=== PATIENT | female | born 1985 | race Caucasian/White ===

== ENCOUNTER 2016-11-20 17:56 | Inpatient (IN) | payer OTHER ==
[~2016-11-20 17:56] MED LIST: PENICILLIN G POTASSIUM INJ 5,000,000 UNITS in SODIUM CHLORIDE 0.9% INJ 100 ML IV ONE
[2016-11-20] MEDS ORDERED: LACTATED RINGER'S 1000 ML INJ 1,000 ML IV SCH (18:09)
[2016-11-20] MEDS ORDERED: LACTATED RINGER'S 1000 ML INJ 1,000 ML IV PRN (18:09)
[2016-11-20] MEDS ORDERED: SODIUM CHLORID 0.9% 500 ML INJ 500 ML IV PRN (18:15)
[2016-11-20] MEDS ORDERED: CITRIC ACID-SODIUM CITRATE LIQ 30 ML UDC PO SCH (18:15)
[2016-11-20] MEDS ORDERED: MINERAL OIL 10 ML VIAL TOPICAL PRN (18:15)
[2016-11-20] MEDS ORDERED: LIDOCAINE HCL 1% 50 ML VIAL I-DERMAL PRN (18:15)
[2016-11-20] MEDS ORDERED: LIDOCAINE HCL 1% 50 ML VIAL INFIL PRN (18:15)
[2016-11-20] MEDS ORDERED: OXYTOCIN 30 UNITS-500ML PREMIX 500 ML IV ONE (18:15)
[2016-11-20] MEDS ORDERED: SODIUM CHLOR 0.9% 1000 ML INJ 1,000 ML IV PRN (18:29)
[2016-11-20] MEDS ORDERED: BETAMETHASONE SOD PHOS/ACETATE SUSP 30 MG/5 ML VIAL IM ONE (18:45)
[2016-11-20] MEDS ORDERED: PENICILLIN G POTASSIUM INJ 5,000,000 UNITS in SODIUM CHLORIDE 0.9% INJ 100 ML IV ONE (19:00)
[2016-11-20 19:12] LABS: AUTOMATED NEUTROPHIL # 11.3 TH/MM3 (1.8-7.7); BASOPHIL % 0.3 % (0.0-2.0); EOSINOPHIL # 0.1 TH/MM3 (0-0.4); EOSINOPHIL % 0.6 % (0.0-4.0); HEMATOCRIT 34.8 % (35.0-46.0); HEMO FLAGS DIFF FINAL; LYMPH % 9.7 % (9.0-44.0); LYMPHOCYTE # 1.3 TH/MM3 (1.0-4.8); MEAN CELL VOLUME 84.3 FL (80.0-100.0); MEAN CORPUSCULAR HEMOGLOBIN 27.3 PG (27.0-34.0); MEAN CORPUSCULAR HGB CONC 32.4 % (32.0-36.0); MONO % 7.7 % (0.0-8.0); NEUT % 81.7 % (16.0-70.0); PLATELET COUNT 323 TH/MM3 (150-450); RED BLOOD COUNT 4.13 MIL/MM3 (4.00-5.30); RED CELL DISTRIBUTION WIDTH 16.1 % (11.6-17.2); WHITE BLOOD COUNT 13.8 TH/MM3 (4.0-11.0)
--- NOTE | 2016-11-20 19:14 | HHI.HP ---
HPI Chief Complaint Contractions and vaginal bleeding Date Seen: November 20, 2016 Travel History International Travel<30 Days: No Contact w/Intl Traveler<30Days: No Known Affected Area: No History of Present Illness HPI The patient is 31-year-old white female at approximately 33 weeks with very little care who presents brought in from the longterm for severe abdominal pain and vaginal bleeding that began there. Patient has [place] living [address] she is an IV drug user she's been on Subutex and other medications. She was picked up by the police and taken to the longterm today. It was at that time she began having pain and she thought her water broke because liquid came out but it was blood not water the heart rate tracing is reactive at this time and she is ann marie every 1-3 minutes. He is having a lot of pain with her contractions and it's almost continuous very much like abruption pattern. Para: 1 : 4 History Obstetric History Obstetric History One vaginal delivery and 2 early losses Social History Narrative Social History Patient is known history of IV and oral drug use is on Subutex now Alcohol Use: Yes Tobacco Use: Yes Substance Abuse: Yes Allergies-Medications (Allergen,Severity, Reaction): Coded Allergies: No Known Allergies (Unverified , 11/20/16) Review of Systems General / Constitutional: No: Fever, Weight Gain, Chills, Other Eyes: No: Diploplia, Blurred Vision, Visual changes, Pain, Photophobia HENT: No: Headaches, Vertigo, Lightheadedness Cardiovascular: No: Irregular Rhythm, Chest Pain or Discomfort, Palpitations, Tachycardia, Syncope, Varicosities, Edema, Cyanosis Respiratory: No: Cough, Short of Breath, Other Gastrointestinal: No: Nausea, Vomiting, Diarrhea Genitourinary: No: Decreased Urinary Output, Oliguria Musculoskeletal: No: Limited ROM, Weakness, Cramping, Edema, Pain Skin: No Rash, No Itching, No Dryness, No Lumps, No Change in Pigmentation, No Change in Nails, No Alopecia, No Lesions Neurologic: No: Weakness, Dizziness, Syncope, Focal Abnormalities, Coordination Problem, Headache, Slurred Speech, Seizures Psychiatric: No: Depression, Suicidal Ideations, Homicidal Ideation Endocrine: No: Heat Intolerance, Cold Intolerance, Polydipsia, Polyuria, Other Physical Exam Narrative GENERAL: Well-nourished, well-developed patient. An acute distress due to contraction pain SKIN: Warm and dry. HEAD: Normocephalic and atraumatic. EYES: No scleral icterus. No injection or drainage. ENT: No nasal drainage noted. Mucous membranes pink. Airway patent. NECK: Supple, trachea midline. No JVD. CARDIOVASCULAR: Regular rate and rhythm without murmurs, gallops, or rubs. RESPIRATORY: Breath sounds equal bilaterally. No accessory muscle use. BREASTS: Bilateral exam showed no masses , no retractions, no nipple discharge. ABDOMEN/GI: Abdomen hard, -tender, bowel sounds present, no rebound, no guarding Gravid to [33-] weeks size Fundal Height: [33-] GENITOURINARY: External Genitalia: intact and normal in appearance -] Moderate amount of red blood noted per vagina no active bleeding Cervix: [-] Dilatation: [4-] Effacement: [100-] Station: [-2] Presentation: [-vtx] Membranes: [ ruptured] Uterine Contractions: [1-2 minutes-] FHT's: Category: [1-] Baseline: [133-] Reactive: [Y-] Variability: [-mod] Decels: [0-] EXTREMITIES: No cyanosis or edema. BACK: Nontender without obvious deformity. No CVA tenderness. NEUROLOGICAL: Awake and alert. Motor and sensory grossly within normal limits. Five out of 5 muscle strength in all muscle groups. Normal speech. Data Data Orders Admit To Inpatient (11/20/16 ) Vital Signs (Adult) .Per protocol (11/20/16 18:09) Heart (11/20/16 18:09) Amnioinfusion (11/20/16 18:09) Urinary Catheter Management .ONCE (11/20/16 18:09) Diet Npo (11/20/16 Dinner) Lactated Ringer's 1000 Ml Inj (Lr 1000 M (11/20/16 18:09) Lactated Ringer's 1000 Ml Inj (Lr 1000 M (11/20/16 18:09) Sodium Chlorid 0.9% 500 Ml Inj (Ns 500 M (11/20/16 18:15) Sodium Chlor 0.9% 1000 Ml Inj (Ns 1000 M (11/20/16 18:29) Lidocaine 1% Inj (50 Ml) (Xylocaine 1% I (11/20/16 18:15) Citric Acid-Sodium Citrate Liq (Bicitra (11/20/16 18:15) Fentanyl Inj (Fentanyl Inj) (11/20/16 18:15) Fentanyl Inj (Fentanyl Inj) (11/20/16 18:15) Penicillin G Potassium Inj (Pfizerpen-G (11/20/16 17:00) Penicillin G Potassium Inj (Pfizerpen-G (11/20/16 23:00) Complete Blood Count With Diff (11/20/16 18:09) Hold Clot (11/20/16 18:09) Abo/Rh Blood Type (11/20/16 18:09) Urinalysis - C+S If Indicated (11/20/16 18:09) Type And Screen (11/20/16 18:09) Resp Oxygen Non Rebreathe Mask (11/20/16 ) ^ Epidural / Intrathecal Infus (11/20/16 18:09) Oxytocin 30 Units-500ml Premix (Pitocin (11/20/16 18:15) Lidocaine 1% Inj (50 Ml) (Xylocaine 1% I (11/20/16 18:15) Light Mineral Oil (Muri-Lube Oil) (11/20/16 18:15) Rubella Immune Status (11/20/16 18:11) Hepatitis Profile (11/20/16 18:11) Rapid Plasma Regin (Rpr) W Ttr (11/20/16 18:11) No Care Spec Serology (11/20/16 18:11) Comprehensive Metabolic Panel (11/20/16 18:12) Coag Profile (11/20/16 18:12) Ob Poc Ultrasound (11/20/16 ) Ob (2e) Additional Admit Info (11/20/16 18:18) Penicillin G Potassium Inj (Pfizerpen-G (11/20/16 19:00) Betamethasone Inj (Celestone Soluspan In (11/20/16 18:45) Ob/Psych Drug Screen, Urine (11/20/16 18:51) Labs Bedside ultrasound was done which shows a vertex fetus with his growth parameters. At 32 weeks 3 days with weight of 2531 g, normal amniotic fluid anterior placenta noted, no previa seen basic anatomy scan within normal limits Assessment/Plan Assessment and Plan 31-year-old white female at 33 weeks approximately with very little care presents in active labor with vaginal bleeding noted on exam consistent with an abruption and labor, her cervix is 400% -2 vertex presentation with a moderate amount of bleeding not excessive. Patient has a history of drug use is Brought in and here by the longterm picked her up yesterday. Plan to admit the patient for delivery and labor management , draw Abruption labs, lab, and perform ultrasound for estimated weight , will anticipate vaginal delivery very quickly. Oscar Howard II, MD November 20, 2016 19:14
[2016-11-20] MEDS ORDERED: LORazepam 2 MG/ML VIAL IM PRN (19:15)
[2016-11-20 19:21] LABS: BLOOD GAS BASE EXCESS -0.2 mmol/L (-2-2); BLOOD GAS O2 HGB SATURATION 36 % (90-100); CORD BLOOD GAS HCO3 25 mmol/L (21-29); CORD BLOOD GAS PCO2 46 mmHG (34-78); CORD BLOOD GAS PH 7.35 (7.14-7.42); CORD BLOOD GAS PO2 18 mmHG (3.0-40.0)
[2016-11-20 19:22] LABS: DRAW SITE CORD BLOOD; STAT YES
--- NOTE | 2016-11-20 19:26 | PD.OB.DELI ---
Anesthesia: None Episiotomy: None Vaginal Delivery: Normal, Precipitous Presentation: Occiput anterior Nuchal Cord: x1 Delayed cord clamping (45 sec): No : Male One Minute : 9 Five Minute : 9 Weight: 1950 gm Placenta: Spontaneous delivery, Intact, Other Laceration: No lacerations Additional Information placenta showed clots consistent with abruption , sent to Oscar Valadez II, MD November 20, 2016 19:25
[2016-11-20] MEDS ORDERED: SODIUM CHLORIDE 0.9% FLUSH 10 ML FLUSH IV FLUSH PRN (19:30)
[2016-11-20] MEDS ORDERED: ACETAMINOPHEN 325 MG TAB PO PRN (19:30)
[2016-11-20] MEDS ORDERED: ONDANSETRON ODT 4 MG TAB PO PRN (19:30)
[2016-11-20] MEDS ORDERED: ZOLPIDEM TARTRATE 5 MG TAB PO PRN (19:30)
[2016-11-20] MEDS ORDERED: BENZOCAINE 20% TOPICAL SPRAY 60 ML CAN TOPICAL PRN (19:30)
[2016-11-20] MEDS ORDERED: WITCH HAZEL 50%/GLYCERIN 12.5% 40 PAD JAR TOPICAL PRN (19:30)
[2016-11-20] MEDS ORDERED: ALUMINUM/MAGNESIUM/SIMETH 30 ML CUP PO PRN (19:30)
[2016-11-20] MEDS ORDERED: DOCUSATE SODIUM 50 MG/SENNA 8.6 MG TAB PO PRN (19:30)
[2016-11-20 19:45] LABS: ALKALINE PHOSPHATASE 219 U/L (45-117); ALT (GPT) 39 U/L (10-53); ANION GAP 9 MEQ/L (5-15); AST (GOT) 34 U/L (15-37); BICARBONATE 23.2 MEQ/L (21.0-32.0); BLOOD UREA NITROGEN 5 MG/DL (7-18); CHLORIDE 103 MEQ/L (98-107); GLOMERULAR FILTRATION RATE 114 ML/MIN (>89); SODIUM (NA) 135 MEQ/L (136-145); TOTAL BILIRUBIN ADULT 0.4 MG/DL (0.2-1.0)
[2016-11-20 19:51] LABS: POTASSIUM 4.2 MEQ/L (3.5-5.1)
[2016-11-20] MEDS: IBUPROFEN 600 MG TAB PO PRN (19:53)
[2016-11-20 20:36] LABS: BACTERIA, URINE RARE /hpf; BLOOD, URINE SMALL (NEG); GLUCOSE,URINE NEG (NEG); KETONE, URINE NEG (NEG); MUCUS URINE FEW /lpf (OCC); NITRITE,URINE NEG (NEG); SQUAMOUS EPITHELIAL CELL URINE <1 /hpf (0-5); URINE COLOR YELLOW (YELLW/STRAW)
[2016-11-20 20:37] LABS: AMPHETAMINE, URINE NEG (NEG); BARBITURATES, URINE NEG (NEG)
[2016-11-20 20:55] LABS: COCAINE, URINE POS (NEG); COMMENT (UR) CULT NOT INDICATED; CULTURE IF INDICATED CULT NOT INDICATED
[2016-11-20 21:00] VITALS: RESP 18
[2016-11-20 21:00] LABS: APTT (PATIENT) 29.1 SEC (24.3-30.1); INTERNATIONAL NORMALIZED RATIO 0.9 RATIO; PROTHROMBIN TIME - PATIENT 9.6 SEC (9.8-11.6)
[2016-11-20] MEDS ORDERED: SODIUM CHLORIDE 0.9% FLUSH 10 ML FLUSH IV FLUSH SCH (21:00)
[2016-11-20] MEDS: PENICILLIN G POTASSIUM INJ 2,500,000 UNITS in SODIUM CHLORIDE 0.9% INJ 100 ML IV SCH (23:00)
[2016-11-21] MEDS: PENICILLIN G POTASSIUM INJ 2,500,000 UNITS in SODIUM CHLORIDE 0.9% INJ 100 ML IV SCH (03:00)
[2016-11-21] MEDS: IBUPROFEN 600 MG TAB PO PRN ×2 (04:05→09:57)
--- NOTE | 2016-11-21 09:20 | HHI.OB ---
Subjective Post Day: 1 Remarks Ms. Tang is a 31 yo who is PPD 1 from [facility] 11/20 at 1856. Patient was afebrile with stable vital signs overnight. Patient awoken from sleep from interview; she reports ambulating this morning and urinating without complications briefly. Patient reports mild abdominal pain at this time. She is unaware of quantity of vaginal bleeding. Objective Vitals/I&O Vital Signs Date Time Temp Pulse Resp B/P Pulse Ox O2 Delivery O2 Flow Rate FiO2 11/20/16 21:00 18 11/20/16 20:30 18 11/20/16 20:30 18 Objective Remarks GENERAL: Well-nourished, well-developed patient. CARDIOVASCULAR: Regular rate and rhythm without murmurs, gallops, or rubs. RESPIRATORY: Breath sounds equal bilaterally. No accessory muscle use. ABDOMEN/GI: Abdomen soft, non-tender. Fundus: Firm, non-tender at umbilicus. GENITOURINARY: Light to moderate bleeding. EXTREMITIES: No cyanosis or edema, non-tender, without signs of DVT. Medications and IVs Current Medications Medications (Trade) Dose Ordered Sig/Tomas Route Start Time Stop Time Status Last Admin Lactated Ringer's 1,000 ml @ 125 mls/hr Q8H IV 11/20/16 18:09 Lactated Ringer's 1,000 ml @ 3,000 mls/hr Q20M PRN IV 11/20/16 18:09 (NS 1000 ml Inj) 1,000 ml @ 100 mls/hr Q10H PRN IV 11/20/16 18:29 (fentaNYL INJ) 50 mcg Q1H PRN IV PUSH 11/20/16 18:15 11/20/16 19:19 Fentanyl Citrate 100 mcg 100 mcg Q1H PRN IV PUSH 11/20/16 18:15 11/20/16 19:20 (Pfizerpen-G Inj/ NS Inj) 100 ml @ 200 mls/hr Q4H IV 11/20/16 23:00 (Muri-Lube Oil) 10 ml UNSCH PRN TOPICAL 11/20/16 18:15 (Ativan Inj) 1 mg Q4H PRN IM 11/20/16 19:15 (fentaNYL INJ) 50 mcg Q3HR PRN IV PUSH 11/20/16 19:15 (NS Flush) 2 ml BID IV FLUSH 11/20/16 21:00 (NS Flush) 2 ml UNSCH PRN IV FLUSH 11/20/16 19:30 (Tylenol) 650 mg Q4H PRN PO 11/20/16 19:30 (Motrin) 600 mg Q6H PRN PO 11/20/16 19:30 11/21/16 04:05 (Americaine 20% Top Spr) 1 spray Q4H PRN TOPICAL 11/20/16 19:30 (Tucks Pads) 1 applic QID PRN TOPICAL 11/20/16 19:30 (Anuradha-Colace) 2 tab Q12H PRN PO 11/20/16 19:30 11/21/16 04:05 (Ambien) 5 mg HS PRN PO 11/20/16 19:30 (Mag-Al Plus Susp Liq) 15 ml Q8H PRN PO 11/20/16 19:30 (Zofran Odt) 4 mg Q6H PRN PO 11/20/16 19:30 Assessment/Plan Problem List: (1) Substance abuse (2) care and examination Assessment and Plan 31 yo who is PPD 1 from 11/20 at 1856 Routine care Continue to monitor vital signs, vaginal bleeding Encourage ambulation When necessary Motrin/Percocet Stool softener as needed Substance Abuse Impression: UDS + for cocaine. History of IV drug use -Will monitor for withdrawal symptoms Incarceration -[facility] staff at bedside Discharge Planning Anticipate discharge tomorrow Josh Lechuga MD R2 November 21, 2016 09:20
[2016-11-21] MEDS ORDERED: SENN1TAB PO (12:22)
[2016-11-21] MEDS ORDERED: IBUP-232 PO (12:22)
--- NOTE | 2016-11-21 12:23 | HHI.DCPOC ---
Discharge Care Plan Diagnosis: (1) Substance abuse (2) care and examination Report Symptoms to Your Doctor -Temperate above 100.5 degrees -Redness, of incision or excessive or foul smelling drainage -Unusual pain or calf pain -Increased vaginal bleeding -Painful or difficulty urinating -Feelings of extreme sadness or anxiety after 2 weeks Goals to Promote Your Health * To prevent worsening of your condition and complications * To maintain your health at the optimal level Directions to Meet Your Goals Take your medications as prescribed Follow your dietary instruction Follow activity as directed Ensure plenty of rest for recovery Drink fluids for hydration Keep your appointments as scheduled Take your immunizations and boosters as scheduled If your symptoms worsen call your PCP, if no PCP go to Urgent Care Center or Emergency Room Smoking is Dangerous to Your Health. Avoid second hand smoke Call the 24-hour crisis hotline for domestic abuse at Darnell Cuellar MD R1 November 21, 2016 12:23
[2016-11-26 09:58] LABS: ECSTASY (MDMA) UR NEG (NEG); HEROIN (6-ACETYLMORPHINE) UR NEG (NEG); OBMETHADONE UR NEG (NEG); PHENCYCLIDINE URINE NEG (NEG)
[2016-11-26 09:59] LABS: BATH SALTS (MDPV) UR NEG (NEG); GABAPENTIN UR NEG (NEG); HYDROMORPHONE U NEG (NEG); K2 SPICE UR NEG (NEG); OXYCODONE (PERCODAN) NEG (NEG)
== END 2016-11-21 13:51 | disposition short-term general hospital (02) | DRG 774 ==
LOC: HOBED 17:56 → H2EB 18:25 → H1EA 22:20
PROVIDERS: ADMIT Obstetrics & Gynecology Maternal & Fetal Medicine; ATTEND Obstetrics & Gynecology Maternal & Fetal Medicine
PROC: 10E0XZZ Delivery of Products of Conception, External Approach (ICD-10-PCS; principal; 2016-11-20)
DX: O60.14X1 Preterm labor third trimester with preterm delivery third trimester, fetus 1 (principal); O45.93 Premature separation of placenta, unspecified, third trimester; F19.20 Other psychoactive substance dependence, uncomplicated; F14.10 Cocaine abuse, uncomplicated; O69.81X0 Labor and delivery complicated by cord around neck, without compression, not applicable or unspecified; Z3A.33 33 weeks gestation of pregnancy; Z37.0 Single live birth; Z59.0 Homelessness; Z72.0 Tobacco use
CPT/HCPCS: 59025; 80053; 80307; 81001; 82805; 85025; 85610; 85730; 86850; 86900; 86901; 88307; 99285; G0481; J2590; J3010